=== PATIENT | male | born 1995 | race Two or more races ===

== ENCOUNTER 2020-05-30 22:32 | Emergency (ER) | payer OTHER ==
[~2020-05-30] VITALS: Ht 180.3 cm; Wt 65.8 kg
== END 2020-05-31 01:11 | disposition home or self-care (01) ==
LOC: ER 22:32
DX: S62.396A Other fracture of fifth metacarpal bone, right hand, initial encounter for closed fracture (principal); W18.09XA Striking against other object with subsequent fall, initial encounter; Y93.89 Activity, other specified; Y92.89 Other specified places as the place of occurrence of the external cause; Y99.8 Other external cause status